=== PATIENT | male | born 1955 | race Caucasian/White ===

== ENCOUNTER → 2021-07-06 09:51 | Outpatient (BNVA) | payer MEDICARE, BC, SELFPAY | PROVIDERS: PCP Internal Medicine; Visit Provider Internal Medicine Rheumatology | DX: M05.79 Rheumatoid arthritis with rheumatoid factor of multiple sites without organ or systems involvement (principal); L40.0 Psoriasis vulgaris; Z79.899 Other long term (current) drug therapy; Z11.59 Encounter for screening for other viral diseases; Z11.1 Encounter for screening for respiratory tuberculosis; C20 Malignant neoplasm of rectum; C61 Malignant neoplasm of prostate; Z90.49 Acquired absence of other specified parts of digestive tract; Z98.0 Intestinal bypass and anastomosis status; Z79.52 Long term (current) use of systemic steroids; Z92.21 Personal history of antineoplastic chemotherapy; Z87.891 Personal history of nicotine dependence; M06.9 Rheumatoid arthritis, unspecified | CPT/HCPCS: 36415; 71046; 73130; 73630; 80076; 82306; 82565; 85025; 85651; 86140; 86200; 86431; 86480; 86704; 86803; 87340; 99205 ==

== ENCOUNTER 2021-07-06 11:22 | Outpatient (CLI) | payer MEDICARE, SELFPAY ==
--- NOTE | 2021-07-06 11:34 | XR_ITS ---
WS: [id number] XR chest 2V* [id number] REASON FOR EXAM: Z79.899 - Other skilled nursing (current) drug therapy FINDINGS: Mild tortuosity of the thoracic aorta. Normal heart size. Calcified granulomatous disease bilaterally. Vague density seen in the periphery of the left upper lung this may represent pleural plaque however cannot exclude intraparenchymal lesion. No significant abnormality of the bony thorax. XR/XR chest 2V* [id number] IMPRESSION: Abnormality in the left lung as above. This may relate to calcified granulomato us disease however if the patient is a smoker a CT scan of the chest is recomme nded.
--- NOTE | 2021-07-06 11:34 | XR_ITS ---
WS: [id number] XR foot RT min 3V* [id number] REASON FOR EXAM: Z79.899 - Other senior care (current) drug therapy FINDINGS: Previous amputation of the right fifth toe from the base of the proximal phalanx distally. Old healed fracture of the right fifth metatarsal. Arthropathy involving the PIP, DIP, and MP joints of the second through the fourth toes characterized by severe joint space narrowing, erosions, and subluxations. In the remainder of the right foot no significant abnormality is noted. XR/XR foot RT min 3V* [id number] IMPRESSION: Arthropathy of the right forefoot consistent with rheumatoid arthritis.
--- NOTE | 2021-07-06 11:34 | XR_ITS ---
WS: [id number] XR foot LT min 3V* [id number] REASON FOR EXAM: Z79.899 - Other [facility] (current[facility] drug therapy FINDINGS: Postsurgical changes in the toes with arthrodesis of the PIP joints second through the fifth toes. Calle bluxation of the metatarsal-phalangeal joints of the second through the fourth toes with presumed pre vious osteotomy involving the second through fourth metatarsals. Pinning of the proximal phalanx of the great toe. Old healed fracture of the fifth metatarsal. Mild changes of osteoarthritis in the mid and hindfoot with mild joint space narrowing and subchondra l sclerosis. No focal bone lesion. No soft tissue abnormality. No comparison examination. XR/XR foot LT min 3V* [id number] IMPRESSION: Postsurgical changes and mild osteoarthritis of the left foot.
--- NOTE | 2021-07-06 11:34 | XR_ITS ---
WS: [id number] XR hand RT min 3V* [id number] REASON FOR EXAM: Z79.899 - Other longterm (current) drug therapy FINDINGS: In the DIP and PIP joints of the second through the fourth right fingers there is significant joint s pace narrowing. There are lucencies in the distal portions of the proximal and mid phalanges of the s econd through the fourth fingers which are felt to represent erosions. Similarly characterized arthropathy is seen in the metacarpal phalangeal joints of the second through the fifth fingers which is associated with severe medial subluxations of the proximal phalanges. The thumb does not appear to be involved. XR/XR hand RT min 3V* [id number] IMPRESSION: Severe arthropathy as above. Consistent with rheumatoid arthritis.
--- NOTE | 2021-07-06 11:34 | XR_ITS ---
WS: [id number] XR hand LT min 3V* [id number] REASON FOR EXAM: Z79.899 - Other [facility] (current) drug therapy FINDINGS: The DIP and MIP joints of the fingers of the left hand are relatively unremarkable except for the PIP joint of the fifth finger which shows deformity of the distal head of the proximal phalanx and sublu xation of the middle phalanx medially. In the second through the fifth fingers there is moderate medial subluxation of the proximal phalange s at the MTP joints. This is most severe in the second and third fingers. Definite erosions are not i dentified. There are changes of osteoarthritis in the carpal metacarpal joint of thumb with subchondral sclerosi s, joint space narrowing, and mild subluxation. XR/XR hand LT min 3V* [id number] IMPRESSION: Arthropathy involving predominantly the MP joints of the left hand compatible w ith rheumatoid arthritis.
[2021-07-06 12:27] LABS: Basophils % 1.5 %; Eosinophils % 1.5 %; Hematocrit 41.3 % (42.0-52.0); Lymphocytes # 0.4 10^3/uL (0.8-4.8); Lymphocytes % 27.3 %; Mean Corpuscular HGB Conc 31.5 g/dL (30.0-36.0); Mean Corpuscular Hemoglobin 24.5 pg (28.0-34.0); Mean Corpuscular Volume 77.9 fl (80-94); Mean Platelet Volume 7.9 fL (7.4-10.4); Monocytes # 0.4 10^3/uL (0.2-0.9); Monocytes % 29.5 %; Neutrophils % 40.2 %; Nucleated Red Blood Cells % 0 %; Platelet Count 252 10^3/cmm (130-400); Red Cell Distribution Width 15.4 % (12.1-15.1); White Blood Count 1.3 10^3/uL (4.0-10.0)
[2021-07-06 12:35] LABS: Neutrophils # 0.53 10^3/uL (1.8-7.7)
[2021-07-06 13:07] LABS: Alanine Aminotransferase 21 U/L (0-41); Albumin Level 3.8 g/dL (3.5-5.2); Alkaline Phosphatase 124 IU/L (40-130); Aspartate Amino Transferase 17 U/L (0-40); C Reactive Protein 17.8 mg/L (0.0-4.9); Globulin 3.6 g/dL (1.3-4.6); Glomerular Filtration Rate 135.2 mL/min (90-130); Total Bilirubin 0.5 mg/dL (0.15-1.2); Total Protein 7.4 g/dL (6.6-8.7)
[2021-07-06 13:22] LABS: 25 Hydroxy Vitamin D 34 ng/mL (30-100)
[2021-07-06 13:23] LABS: Hepatitis B Core AB, Total Non-Reactive (Nonreactive); Hepatitis B Surface Antigen Non-Reactive (Nonreactive); Hepatitis C Virus Antibody Non-Reactive (Nonreactive)
[2021-07-07 12:07] LABS: Erythrocyte Sedimentation Rate 19 mm/hr (0-10)
[2021-07-07 14:27] LABS: Cyclic Citrullinated Peptide >250 UNITS
[2021-07-09 13:59] LABS: Quantiferon Mitogen 1.12 IU/mL; Quantiferon Nil 0.01 IU/mL; Quantiferon TB Gold NEGATIVE (NEGATIVE)
== END 2021-07-06 11:23 | disposition home or self-care (01) ==
LOC: RAD 11:32
PROVIDERS: PCP Internal Medicine; Visit Provider Internal Medicine Rheumatology
DX: M06.9 Rheumatoid arthritis, unspecified (principal); Z79.899 Other long term (current) drug therapy; Z11.59 Encounter for screening for other viral diseases; Z11.1 Encounter for screening for respiratory tuberculosis
CPT/HCPCS: 36415; 71046; 73130; 73630; 80076; 82306; 82565; 85025; 85651; 86140; 86200; 86431; 86480; 86704; 86803; 87340

== ENCOUNTER → 2021-09-13 09:14 | Outpatient (BNVA) | payer MEDICARE, BC, SELFPAY | PROVIDERS: PCP Internal Medicine; Visit Provider Internal Medicine Rheumatology | DX: M05.79 Rheumatoid arthritis with rheumatoid factor of multiple sites without organ or systems involvement (principal); L40.0 Psoriasis vulgaris; Z79.899 Other long term (current) drug therapy; C20 Malignant neoplasm of rectum; C61 Malignant neoplasm of prostate; E04.1 Nontoxic single thyroid nodule; Z79.52 Long term (current) use of systemic steroids; Z92.21 Personal history of antineoplastic chemotherapy; Z90.49 Acquired absence of other specified parts of digestive tract; Z98.0 Intestinal bypass and anastomosis status; Z87.891 Personal history of nicotine dependence | CPT/HCPCS: 99214 ==

== ENCOUNTER → 2022-01-18 12:33 | Outpatient (BNVA) | payer MEDICARE, BC, SELFPAY | PROVIDERS: PCP Internal Medicine; Visit Provider Internal Medicine Rheumatology | DX: M05.79 Rheumatoid arthritis with rheumatoid factor of multiple sites without organ or systems involvement (principal); L40.0 Psoriasis vulgaris; Z79.899 Other long term (current) drug therapy; C61 Malignant neoplasm of prostate; C20 Malignant neoplasm of rectum; Z79.52 Long term (current) use of systemic steroids; D70.1 Agranulocytosis secondary to cancer chemotherapy; Z98.0 Intestinal bypass and anastomosis status; Z92.21 Personal history of antineoplastic chemotherapy; Z90.49 Acquired absence of other specified parts of digestive tract | CPT/HCPCS: 99214 ==

== ENCOUNTER → 2022-05-09 13:12 | Outpatient (BNVA) | payer MEDICARE, BC, SELFPAY | PROVIDERS: PCP Internal Medicine; Visit Provider Internal Medicine Rheumatology | DX: M05.79 Rheumatoid arthritis with rheumatoid factor of multiple sites without organ or systems involvement (principal); L40.0 Psoriasis vulgaris; Z79.899 Other long term (current) drug therapy; Z79.52 Long term (current) use of systemic steroids; Z85.46 Personal history of malignant neoplasm of prostate; Z85.048 Personal history of other malignant neoplasm of rectum, rectosigmoid junction, and anus; Z90.49 Acquired absence of other specified parts of digestive tract; Z98.0 Intestinal bypass and anastomosis status | CPT/HCPCS: 99214 ==

== ENCOUNTER → 2022-08-28 12:39 | Outpatient (BNVA) | payer MEDICARE, BC, SELFPAY | PROVIDERS: PCP Internal Medicine; Visit Provider Internal Medicine Rheumatology | DX: M05.79 Rheumatoid arthritis with rheumatoid factor of multiple sites without organ or systems involvement (principal); Z79.899 Other long term (current) drug therapy; C61 Malignant neoplasm of prostate; C20 Malignant neoplasm of rectum; L40.0 Psoriasis vulgaris; Z92.21 Personal history of antineoplastic chemotherapy; Z90.49 Acquired absence of other specified parts of digestive tract; Z93.3 Colostomy status; Z79.52 Long term (current) use of systemic steroids | CPT/HCPCS: 36415; 80076; 82565; 85007; 85025; 86140; 99214 ==

== ENCOUNTER → 2022-11-30 11:29 | Outpatient (BNVA) | payer MEDICARE, BC, SELFPAY | PROVIDERS: PCP Internal Medicine; Visit Provider Internal Medicine Rheumatology | DX: M05.79 Rheumatoid arthritis with rheumatoid factor of multiple sites without organ or systems involvement (principal); Z79.899 Other long term (current) drug therapy; C61 Malignant neoplasm of prostate; D70.9 Neutropenia, unspecified | CPT/HCPCS: 36415; 80076; 82565; 85007; 85025; 86140; 99215 ==

== ENCOUNTER 2023-02-22 13:48 | Outpatient (CLI) | payer MEDICARE, BC, SELFPAY | END 2023-02-22 13:49 | disposition home or self-care (01) | PROVIDERS: PCP Internal Medicine; Visit Provider Internal Medicine Rheumatology | DX: M05.79 Rheumatoid arthritis with rheumatoid factor of multiple sites without organ or systems involvement (principal); L40.0 Psoriasis vulgaris; C20 Malignant neoplasm of rectum; C61 Malignant neoplasm of prostate; Z79.899 Other long term (current) drug therapy | CPT/HCPCS: 80076; 82565; 85007; 85025; 86140; 99214 ==

== ENCOUNTER 2023-05-31 12:00 | Outpatient (CLI) | payer MEDICARE, BC, SELFPAY ==
[2023-05-31 12:28] LABS: Basophils % 1.4 %; Hematocrit 39.2 % (37-53); Lymphocytes # 0.3 10^3/uL (0.8-4.8); Lymphocytes % 45.1 %; Mean Corpuscular HGB Conc 32.1 g/dL (30-55); Mean Corpuscular Hemoglobin 24.6 pg (27-33); Mean Corpuscular Volume 76.4 fl (82-101); Mean Platelet Volume 8.4 fL (7.4-10.4); Monocytes # 0.2 10^3/uL (0.2-0.9); Neutrophils % 21.1 %; Nucleated Red Blood Cells % 0 %; Platelet Count 183 10^3/cmm (157-399); Red Blood Count 5.13 10^6/uL (3.85-5.65); Red Cell Distribution Width 15.1 % (12.1-15.1)
[2023-05-31 12:54] LABS: Alanine Aminotransferase 16 U/L (0-41); Albumin Level 3.9 g/dL (3.5-5.2); Alkaline Phosphatase 121 U/L (40-130); Aspartate Amino Transferase 17 U/L (0-40); C Reactive Protein 6.5 mg/L (0.0-4.9); Globulin 3.5 g/dL (1.3-4.6); Glomerular Filtration Rate 84.2 mL/min (90-130); Total Bilirubin 0.7 mg/dL (0.15-1.2); Total Protein 7.4 g/dL (6.6-8.7)
[2023-05-31 13:18] LABS: Neutrophils # 0.15 10^3/uL (1.8-7.7); White Blood Count 0.71 10^3/uL (3.29-11.43)
== END 2023-05-31 12:01 | disposition home or self-care (01) ==
PROVIDERS: PCP Internal Medicine; Visit Provider Internal Medicine Rheumatology
DX: M05.79 Rheumatoid arthritis with rheumatoid factor of multiple sites without organ or systems involvement (principal); Z79.899 Other long term (current) drug therapy
CPT/HCPCS: 80076; 82565; 85025; 86140; 99214

== ENCOUNTER 2023-09-13 13:41 | Outpatient (CLI) | payer MEDICARE, BC, SELFPAY | END 2023-09-13 13:42 | disposition home or self-care (01) | LOC: LAB 13:45 | PROVIDERS: PCP Internal Medicine; Visit Provider Internal Medicine Rheumatology | DX: M05.79 Rheumatoid arthritis with rheumatoid factor of multiple sites without organ or systems involvement (principal); C61 Malignant neoplasm of prostate; C20 Malignant neoplasm of rectum; L40.0 Psoriasis vulgaris; Z79.899 Other long term (current) drug therapy; Z79.52 Long term (current) use of systemic steroids; Z90.49 Acquired absence of other specified parts of digestive tract | CPT/HCPCS: 36415; 80076; 82565; 85025; 86140; 99214 ==

== ENCOUNTER → 2024-06-30 14:55 | Outpatient (BNVA) | payer MEDICARE, BC, SELFPAY | PROVIDERS: PCP Internal Medicine; Visit Provider Internal Medicine Rheumatology | DX: M05.79 Rheumatoid arthritis with rheumatoid factor of multiple sites without organ or systems involvement (principal); L40.0 Psoriasis vulgaris; Z85.46 Personal history of malignant neoplasm of prostate; Z85.048 Personal history of other malignant neoplasm of rectum, rectosigmoid junction, and anus | CPT/HCPCS: 99214 ==